=== PATIENT | male | born 1990 | race African-American/Black ===

== ENCOUNTER 2019-07-21 07:50 | Emergency (ER) | payer BC ==
[~2019-07-21] VITALS: Ht 175.3 cm; Wt 73.0 kg
[2019-07-21] MEDS ORDERED: SODIUM CHLORIDE 0.9% 1,000 ML IV ONE (08:34)
[2019-07-21] MEDS ORDERED: KETOROLAC 30MG/ML VIAL IV STA (08:34)
[2019-07-21] MEDS ORDERED: METOCLOPRAMIDE HCL 10MG/2ML VIAL IV ONE (08:45)
[2019-07-21 10:10] VITALS: BP 120/68
== END 2019-07-21 10:30 | disposition home or self-care (01) ==
LOC: ER 07:50
DX: J11.1 Influenza due to unidentified influenza virus with other respiratory manifestations (principal); R51 Headache; R11.0 Nausea; R42 Dizziness and giddiness; R52 Pain, unspecified; R50.9 Fever, unspecified
CPT/HCPCS: 71045; 87804; 96361; 96374; 96375; 99284; J1885; J2765; J7030